=== PATIENT | female | born 1940 | race Caucasian/White ===

== ENCOUNTER → 2021-10-10 09:59 | Outpatient (CLI) | payer MEDICARE, OTHER, SELFPAY ==
[2021-10-10 11:04] LABS: COVID19 -Nasal RAPID Negative (Negative)
== END ==
PROVIDERS: PCP Physician Assistant Medical; Referring Provider Internal Medicine; Visit Provider Internal Medicine
DX: Z20.822 Contact with and (suspected) exposure to COVID-19 (principal)
CPT/HCPCS: 87635; C9803

== ENCOUNTER → 2021-10-10 10:04 | Outpatient (CLI) | payer MEDICARE, OTHER, SELFPAY ==
--- NOTE | 2021-10-14 08:58 | PM.PFT.1 ---
Pulmonary Function Test Referral & Results Date Patient Seen: 10/10/21 Requesting provider: Prema Campbell Results: The spirometry demonstrates an FVC of 2.16 L which is 89% of predicted. The FEV1 was measured at 1.65 L which is 91% of predicted. The FEV1/FVC ratio was 76 which is 104% of predicted. Following the administration of bronchodilator there was no appreciable change Lung volumes show an SVC of 2.26 L which is 89% of predicted. The diffusing capacity was measured at 16.67 which is 72% of predicted. No hemoglobin value was provided, so no correction for potential anemia could be made, if appropriate. The maximum voluntary ventilation was minimally reduced Interpretation: This study demonstrates normal spirometry. There is a minimal reduction diffusing capacity suggesting element of disease at the capillary alveolar level and the maximum voluntary ventilation is also minimally reduced which raises the possibility of the presence of neuromuscular disease Clinical correlation suggested
== END ==
PROVIDERS: PCP Physician Assistant Medical; Referring Provider Pediatrics; Visit Provider Pediatrics
DX: J45.40 Moderate persistent asthma, uncomplicated (principal); Z20.822 Contact with and (suspected) exposure to COVID-19; J98.8 Other specified respiratory disorders
CPT/HCPCS: 87635; 94060; 94726; 94729; C9803

== ENCOUNTER → 2022-08-13 09:28 | Outpatient (CLI) | payer MEDICARE, OTHER, SELFPAY ==
--- NOTE | 2022-08-13 | DI.MRI.S_ITS ---
PROCEDURE: MR LUMBAR SPINE WO CON INDICATIONS: Wedge compression fracture of third lumbar vertebra, initial TECHNIQUE: Noncontrast sagittal T1 spin echo and T2 fast echo, sagittal STIR, and T2 fast spin echo through the lumbar spine. In cases with scoliosis, additional coronal T2 fast spin echo may be performed. COMPARISON: None. FINDINGS: Image quality: Excellent. Alignment and Curvature: There is normal bony alignment. Bone Marrow: There is a mild to moderate acute compression fracture present involving the superior endplate of L4 with loss of approximately 25% of vertebral body height and marrow edema consistent with the acute compression fracture. An old mild to moderate wedge compression fractures noted involving L1. Marrow signal otherwise appears within normal limits. Spinal Cord: Conus medullaris terminates at the L1 level. Visualized cord demonstrates normal signal and size. Paraspinous Soft Tissues: No paravertebral masses. T12-L1: There is a small broad-based disc protrusion present causing moderate to severe bilateral neural foraminal stenosis. No significant central canal stenosis is seen. L1-L2: There is a small to moderate-sized broad-based disc protrusion present causing severe bilateral neural foraminal stenosis and [id number] central canal stenosis. L2-L3: There is a small to moderate-sized broad-based disc protrusion present causing some moderate bilateral neural foraminal stenosis and [id number] central canal stenosis. L3-L4: There is a mild diffuse disc bulge present causing moderate bilateral neural foraminal stenosis and mild central canal stenosis. L4-L5: There is a mild diffuse disc bulge is present causing moderate bilateral neural foraminal stenosis and moderate central canal stenosis. L5-S1: There is a mild diffuse disc bulge is present causing mild right and moderate to severe left-sided neural foraminal stenosis. No central canal stenosis. IMPRESSION: 1. 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 2. Acute compression fracture involving the superior endplate of L4 with marrow edema in approximately loss of 25% vertebral body height at the superior endplate. 3. Old mild to moderate wedge compression fracture L1. Dictated by: Anthony Meyer M.D. on 08/13/2022 at 14:31 Approved by: Anthony Meyer M.D. on 08/13/2022 at 14:39
== END ==
PROVIDERS: PCP Physician Assistant Medical; Referring Provider Physical Medicine & Rehabilitation; Visit Provider Physical Medicine & Rehabilitation
DX: S32.040A Wedge compression fracture of fourth lumbar vertebra, initial encounter for closed fracture (principal); S32.030A Wedge compression fracture of third lumbar vertebra, initial encounter for closed fracture; M47.815 Spondylosis without myelopathy or radiculopathy, thoracolumbar region; M47.816 Spondylosis without myelopathy or radiculopathy, lumbar region; M47.817 Spondylosis without myelopathy or radiculopathy, lumbosacral region
CPT/HCPCS: 72148

== ENCOUNTER → 2025-06-29 08:21 | Outpatient (CLI) | payer MEDICARE, OTHER, SELFPAY ==
--- NOTE | 2025-06-29 08:22 | DI.ECHO.S_ITS ---
[facility] : : [id number] : [place] : : [id number] : : Phone: [phone] Echocardiogram Report + + :Name: JUAN PABLO ENRIQUEZ Study Date: 06/29/2025 Height: 62 in : :[facility] ReadingLocation: Weight: 130 lb : : Gender: Female BSA: 1.6 m2 : :: 1940 Age: 85 yrs BP: 112/73 mmHg: :Reason For Study: MURMUR : :Ordering Physician: MICHAEL, : :SALIMA Performed By: Hitesh Berry : :Referring: SALIMA RODRIGUEZ : + + Interpretation Summary The left ventricular cavity is small. The left ventricular ejection fraction is normal. The ejection fraction is estimated to be 60-65%. No significant change in LVEF. The right ventricle is normal in size and function. There is mild mitral regurgitation. The IVC is of normal diameter and collapses greater than 50% with a sniff. This suggests a low right atrial pressure of 3 mm Hg. Procedure: A two-dimensional transthoracic echocardiogram with color flow and Doppler was performed. The study quality was technically adequate. Comparison is made with the echocardiogram of 10/29/2017. The patient was in normal sinus rhythm during the exam. Left Ventricle: Left ventricular wall thickness is mildly increased. Proximal septal thickening is noted. The left ventricular cavity is small. There is no ventricular septal defect visualized. The ejection fraction is estimated to be 60-65%. The left ventricular ejection fraction is normal. There has been no significant change since the previous exam. There are no focal wall motion abnormalities. MV E/A: 0.86 Med Peak E' Yehuda: 5.2 cm/sec E/E' med: 17.2. Right Ventricle: The right ventricle is normal in size and function. Atria: The left atrium is mildly dilated. The left atrium has mildly increased in size since the prior echo exam. Right atrial size is normal. There is no Doppler evidence for an interatrial shunt. Mitral Valve: There is mild to moderate mitral annular calcification. The mitral valve leaflets are mildly calcified. There is mild mitral regurgitation. Aortic Valve: The aortic valve is mildly calcified. The aortic valve is trileaflet. There is no aortic valve stenosis. No aortic regurgitation is present. Tricuspid Valve: The tricuspid valve is normal. There is trace tricuspid regurgitation. Pulmonary artery pressures cannot be estimated because of the lack of a measurable TR jet velocity. Pulmonic Valve: The pulmonic valve is not well visualized. There is no pulmonic valvular regurgitation. Great Vessels: The aortic root is normal size. The dimensions of the ascending aorta are normal. The pulmonary is not well visualized. The IVC is of normal diameter and collapses greater than 50% with a sniff. This suggests a low right atrial pressure of 3 mm Hg. Pericardium/ Pleura There is no pericardial effusion. There is no pleural effusion. MMode/2D Measurements & Calculations LVIDd: 3.5 cm LVOT diam: 1.7 cm LVIDs: 2.3 cm Ao root diam: 3.3 cm FS: 34.9 % asc Aorta Diam: 3.1 cm EPSS: 0.40 cm IVSd: 1.2 cm LVPWd: 1.2 cm LV kamara. diameter/BSA (cm/m^2): 2.2 LV sys. diameter/BSA (cm/m^2): 1.4 LA A2 area: 17.7 cm2 RA long axis: 5.2 cm LA A4 area: 21.4 cm2 RA area: 16.2 cm2 LA length (vol): 5.5 cm RA vol: 43.1 ml LA vol: 59.0 ml RA : 27.1 ml/m2 LA vol index: 37.1 ml/m2 IVC diam: 1.8 cm RVD1 (basal): 2.8 cm RVD2 (mid): 2.3 cm TAPSE: 2.8 cm Doppler Measurements & Calculations Ao V2 max: 157.0 cm/sec LVOT Max Yehuda: 132.0 cm/sec Ao V2 mean: 122.3 cm/sec LV V1 max P.0 mmHg Ao max P.9 mmHg LV V1 VTI: 34.4 cm Ao mean P.4 mmHg FANNY(I,D): 2.1 cm2 Ao V2 VTI: 38.2 cm FANNY(V,D): 1.9 cm2 sev ratio: 0.90 FANNY indexed to BSA (cm^2/m^2): 1.3 MV E max yehuda: 89.5 cm/sec TR max yehuda: 229.4 cm/sec MV A max yehuda: 104.1 cm/sec TR max P.0 mmHg MV E/A: 0.86 PA V2 max: 81.8 cm/sec Med Peak E' Yehuda: 5.2 cm/sec PA V2 mean: 61.2 cm/sec E/E' med: 17.2 PA mean P.6 mmHg Lat Peak E' Yehuda: 4.9 cm/sec PA pr(Accel): 67.0 mmHg E/E' lat: 18.3 E/e' average: 17.8 MV dec time: 0.26 sec SV(DEBORA): 78.6 ml Reading Physician:12:24 PM
== END ==
LOC: ECHO 08:21
PROVIDERS: PCP Physician Assistant Medical; Referring Provider Physician Assistant Medical; Visit Provider Internal Medicine Cardiovascular Disease
DX: I34.81 Nonrheumatic mitral (valve) annulus calcification (principal); I34.0 Nonrheumatic mitral (valve) insufficiency; R01.1 Cardiac murmur, unspecified
CPT/HCPCS: 93306